=== PATIENT | male | born 2000 | race Caucasian/White ===

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

== ENCOUNTER → 2022-07-28 15:40 | Outpatient (CLI) | payer OTHER, SELFPAY ==
[2022-07-28 18:54] LABS: Basophils % 0.6 % (0.1-2.0); Eosinophils # 0.7 K/mm3 (0.0-0.4); Eosinophils % 14.1 % (0.1-12.0); Hematocrit 46.2 % (42.0-52.0); Hemoglobin 14.8 g/dL (14.1-18.0); Mean Corpuscular HGB Conc 32.1 g/dL (31.8-35.4); Mean Corpuscular Hemoglobin 27.9 pg (27.0-31.2); Mean Corpuscular Volume 86.9 fl (80-94); Mean Platelet Volume 6.7 fl (7.4-10.4); Monocytes # 0.3 K/mm3 (0.1-1.0); Monocytes % 6.3 % (1.7-9.3); Neutrophils # 2.1 K/mm3 (1.8-7.8); Platelet Count 220 K/mm3 (142-424); Red Blood Count 5.31 M/mm3 (4.60-6.20); Red Cell Distribution Width 13.3 % (11.5-17.5); White Blood Count 5.2 K/mm3 (4.5-13.0)
[2022-07-28 18:59] LABS: Alanine Aminotransferase 21 U/L (12-78); Albumin Level 4.8 g/dl (3.5-5.0); Albumin/Globulin Ratio 1.9 (1.1-1.8); Alkaline Phosphatase 81 U/L (38-126); Anion Gap 16.6 mEq/L (5-15); Aspartate Amino Transferase 30 U/L (17-59); Bilirubin,Total 0.4 mg/dl (0.2-1.3); Blood Urea Nitrogen 11 mg/dl (9-20); Calcium 9.6 mg/dl (8.4-10.2); Carbon Dioxide 26 mmol/L (22.0-30.0); Chloride 103 mmol/L (98-107); Chol/HDL Ratio 3.9 (1-3.5); Cholesterol 205 mg/dl (140-200); Estimated Glomerular Filt Rate 172 ml/min (>60); GFR (African American) 208 ML/MIN (>60); Globulin 2.5 g/dL (1.3-3.2); Glucose 84 mg/dl (74-100); HDL Cholesterol 52 mg/dl (40-60); Potassium 4.6 mmoL/L (3.5-5.1); Sodium 141 mmol/L (136-145); Total Protein,Serum 7.3 g/dl (6.3-8.2); Triglycerides 170 mg/dl (30-150); VLDL Cholesterol 34 mg/dL (0-40)
[2022-07-28 19:10] LABS: Direct LDL Cholesterol 118.87 mg/dL (100-129)
[2022-07-28 19:16] LABS: 25-OH Vitamin D, Total 28.1 ng/mL (30-100)
[2022-07-28 19:29] LABS: Thyroid Stimulating Hormone 2.38 uIU/mL (0.465-4.68)
== END ==
PROVIDERS: PCP Physician Assistant; Visit Provider Physician Assistant
DX: R53.83 Other fatigue (principal); E55.9 Vitamin D deficiency, unspecified; Z79.899 Other long term (current) drug therapy
CPT/HCPCS: 80053; 80061; 82306; 84443; 85025

== ENCOUNTER 2022-10-29 14:55 | Emergency (ER) | payer OTHER, SELFPAY ==
[2022-10-29 14:56] VITALS: BP 165/81; PULSE 132; RESP 18; TEMP 36.8; O2SAT 99; BMI 21.2
--- NOTE | 2022-10-29 15:07 | XR_ITS ---
FINAL REPORT CLINICAL HISTORY: laceration top of rt foot, glass FB? COMPARISON: None FINDINGS: RIGHT FOOT: Three views of the right foot were obtained. There is no acute fracture or dislocation. The joint spaces are intact. There is a soft tissue laceration overlying the dorsal surface of the foot. No radiopaque foreign body is identified. IMPRESSION: No acute bony abnormality. Soft tissue laceration, dorsal surface of the right foot. No radiopaque foreign body is identified. Reviewed, Interpreted and Dictated by Lam Charlton III, MD Transcribed by Alycia Engle Authenticated and [facility]
--- NOTE | 2022-10-29 15:09 | HMH.EDGENADL ---
Discharge Plan Disposition Patient Disposition: Home, Self-Care Prescriptions Prescriptions: No Action venlafaxine [Effexor XR] 37.5 mg capsule,extended release 24hr 37.5 mg PO DAILY Qty: 30 0RF cholecalciferol (vitamin D3) 50 mcg (2,000 unit) capsule 50 mcg PO DAILY Qty: 90 3RF ergocalciferol (vitamin D2) 1,250 mcg (50,000 unit) capsule 1,250 mcg PO WEEKLY Qty: 14 3RF Referrals Follow up/Referrals: Nicanor Plascencia MD [Primary Care Provider] - See instructions Activity Restrictions/Add. Instructions Additional Instructions/Restrictions: Have your sutures removed in 7 to 10 days return with any worsening redness or pus coming from your wound or other concerns. Clinical Impressions Clinical Impression: Laceration of foot Instructions Patient Instructions: DI for Laceration Repair Discharge ED Provider: Lucía Abdi General Adult HPI General Chief complaint: Wound/Laceration Stated complaint: AO9/6@home, lac on Rt foot Time Seen by Provider: 10/29/22 15:04 Mode of Arrival: Ambulatory Source of Information: Patient Limitations: No Limitations Description of Symptoms (Recalled from ER Triage Doc. by RN): Patient reports dropping a glass table on the top of his right foot causing a laceration. History of Present Illness HPI narrative: Patient is a 21-year-old male here with a laceration to the dorsal aspect of his right foot. States he was moving a glass table and part of it broke and lacerated the top portion of his foot. Unsure as to whether or not there is a retained foreign body. His last tetanus shot was in middle school. No other injuries elsewhere. Related Data Previous Rx's Medication Instructions Recorded cholecalciferol (vitamin D3) 50 50 mcg PO DAILY #90 caps 07/29/22 mcg (2,000 unit) capsule ergocalciferol (vitamin D2) 1,250 1,250 mcg PO WEEKLY #14 caps 07/29/22 mcg (50,000 unit) capsule venlafaxine 37.5 mg 37.5 mg PO DAILY #30 caps 07/29/22 capsule,extended release 24 hr (Effexor XR) Allergies Allergy/AdvReac Type Severity Reaction Status Date / Time No Known Allergies Allergy Verified 07/28/22 14:12 [facility] Disclaimer: The information contained in this section may have been updated after the patient was seen, as this information can be updated by other users. Social History (Updated 07/28/22 @ 14:12 by ROBBIE Luis) Smoking Status: Current every day smoker tobacco type: cigarettes second hand exposure: No alcohol intake: never substance use type: denies use current occupational status: student Travel in the last 8 weeks: None household members: family housing: house ROS Obtained: Yes All systems reviewed & no additional complaints except as documented Physical Exam General General appearance: alert Respiratory Respiratory exam: Present normal lung sounds bilaterally; Absent respiratory distress Cardiovascular Cardiovascular exam: Present regular rate; Absent tachycardia Extremities Exam Extremities exam: Present other (3 cm laceration on dorsal aspect of the right foot gaping about 1 to 2 cm) Neurological Exam Neurological exam: Present alert and oriented X3 Medical Decision Making Bradley Inquiry Pt receiving controlled substance: No Vital Signs: 10/29/22 14:56 Temperature 98.3 F Temperature Source Oral Pulse Rate [Radial] 132 H Respiratory Rate 18 Blood Pressure [Right Arm] 165/81 H Blood Pressure Mean [Right Arm] 109 Blood Pressure Source [Right Arm] Automatic Cuff Blood Pressure Position [Right Arm] Sitting 02 Sat by Pulse Oximetry 99 Oxygen Delivery Method Room Air Orders (Tests/Meds): ED MEDICATIONS Discontinued Medications Generic Name Dose Route Start Last Admin Trade Name Freq PRN Reason Stop Dose Admin Tetanus/Reduced Diphtheria/Acell Pertussis 0.5 ml 10/29/22 15:07 10/29/22 15:16 Tet/Diphth/Pert-Adult 0.5ml Syringe IM 10/29/22 15:08 0.5 ml .ONCE ONE Administrati
--- NOTE | 2022-10-29 15:24 | PC.NURSE ---
portable xray at
[2022-10-29 15:30] VITALS: BP 149/84; PULSE 114; O2SAT 100
[2022-10-29 16:00] VITALS: BP 149/84; PULSE 95; RESP 18; TEMP 36.7; O2SAT 99
== END 2022-10-29 16:01 | disposition home or self-care (01) ==
LOC: ER 15:18
PROVIDERS: Emergency Provider Emergency Medicine; PCP Internal Medicine Adolescent Medicine
DX: S91.311A Laceration without foreign body, right foot, initial encounter (principal); F17.210 Nicotine dependence, cigarettes, uncomplicated; W25.XXXA Contact with sharp glass, initial encounter; Z23 Encounter for immunization
CPT/HCPCS: 12002; 73630; 90715; 96372; 99283

== ENCOUNTER 2022-11-04 15:08 | Emergency (ER) | payer OTHER, SELFPAY ==
[2022-11-04 15:25] VITALS: BP 148/79; PULSE 87; RESP 19; TEMP 37.1; O2SAT 98
--- NOTE | 2022-11-04 15:48 | EXP.UTC ---
Discharge Plan Disposition Patient Disposition: Home, Self-Care Condition: Good Prescriptions Prescriptions: New clindamycin HCl 300 mg capsule 300 mg PO Q6H 7 Days Qty: 28 0RF No Action venlafaxine [Effexor XR] 37.5 mg capsule,extended release 24hr 37.5 mg PO DAILY Qty: 30 0RF cholecalciferol (vitamin D3) 50 mcg (2,000 unit) capsule 50 mcg PO DAILY Qty: 90 3RF ergocalciferol (vitamin D2) 1,250 mcg (50,000 unit) capsule 1,250 mcg PO WEEKLY Qty: 14 3RF Referrals Follow up/Referrals: Nicanor Plascencia MD [Primary Care Provider] - See instructions Activity Restrictions/Add. Instructions Additional Instructions/Restrictions: Keep wound area clean and dry clean with antibacterial soap and water and pat dry Take oral antibiotic as prescribe eating yogurt while taking this medication may help with stomach upset Follow up with your Family Doctor if no improvement Straight to ER if any life threatening symptoms Clinical Impressions Clinical Impression: Wound infection Instructions Patient Instructions: Clindamycin Discharge ED Provider: Mariah Gonzales [facility] General Stated complaint: RT foot wound poss infected Mode of Arrival: Ambulatory Source of Information: Patient Limitations: No Limitations Time Seen by Provider: 11/04/22 15:48 Description of Symptoms (Recalled from Triage Doc. by RN): PATIENT C/O POSSIBLE INFECTION TO LACERATION THAT WAS SEWN ON THURSDAY HEENT Symptoms (Recalled from RN notes): No Resp Symptoms (Recalled from RN notes): No Skin Symptoms (Recalled from RN notes): Yes MS Symptoms (Recalled from RN notes): No Functional Status (Recalled from RN notes): WNL History of Present Illness Provider Complaint: Patient states that he cut his foot last Thu and had to have the laceration sutured States that he noticed a couple days later it was looking red and starting to look infected States that today it was looking worse and looks like 2 of the sutures may be trying to come out so he came in to see if he may need some antibiotics Related Data Previous Rx's Medication Instructions Recorded cholecalciferol (vitamin D3) 50 50 mcg PO DAILY #90 caps 07/29/22 mcg (2,000 unit) capsule ergocalciferol (vitamin D2) 1,250 1,250 mcg PO WEEKLY #14 caps 07/29/22 mcg (50,000 unit) capsule venlafaxine 37.5 mg 37.5 mg PO DAILY #30 caps 07/29/22 capsule,extended release 24 hr (Effexor XR) clindamycin HCl 300 mg capsule 300 mg PO Q6H 7 days #28 caps 11/04/22 Allergies Allergy/AdvReac Type Severity Reaction Status Date / Time No Known Allergies Allergy Verified 07/28/22 14:12 Worker's Comp Is this a Worker's Comp case?: No PFSH PFS Disclaimer: The information contained in this section may have been updated after the patient was seen, as this information can be updated by other users. Social History (Updated 07/28/22 @ 14:12 by ROBBIE Luis) Smoking Status: Current every day smoker tobacco type: cigarettes second hand exposure: No alcohol intake: never substance use type: denies use current occupational status: student Travel in the last 8 weeks: None household members: family housing: house ROS Obtained: Yes All systems reviewed & no additional complaints except as documented and Yes Systems reviewed as appropriate & no additional complaints except as documented ENT Ears, Nose, Mouth, and Throat: Reports system reviewed and no additional complaints, except as documented and Reports as per HPI Cardiovascular Cardiovascular: Reports system reviewed and no additional complaints, except as documented and Reports as per HPI Respiratory Respiratory: Reports system reviewed and no additional complaints, except as documented and Reports as per HPI Gastrointestinal Gastrointestingal: Reports system reviewed and no additional complaints, except as documented and as per HPI Integumentary/Breasts Skin/Breast: Reports system reviewed and no additional comp
[2022-11-04 15:56] VITALS: BP 148/79; PULSE 87; RESP 19; TEMP 37.1; O2SAT 98
== END 2022-11-04 16:00 | disposition home or self-care (01) ==
PROVIDERS: Emergency Provider Nurse Practitioner; PCP Internal Medicine Adolescent Medicine
DX: L08.9 Local infection of the skin and subcutaneous tissue, unspecified (principal); F17.210 Nicotine dependence, cigarettes, uncomplicated
CPT/HCPCS: 99212; 99214; G0463

== ENCOUNTER 2022-11-13 17:48 | Emergency (ER) | payer OTHER, SELFPAY ==
[2022-11-13 17:55] VITALS: BP 143/80; PULSE 70; RESP 20; TEMP 37.3; O2SAT 99; BMI 23.8
--- NOTE | 2022-11-13 18:25 | EXP.UTC ---
Discharge Plan Disposition Patient Disposition: Home, Self-Care Condition: Good Prescriptions Prescriptions: No Action venlafaxine [Effexor XR] 37.5 mg capsule,extended release 24hr 37.5 mg PO DAILY Qty: 30 0RF cholecalciferol (vitamin D3) 50 mcg (2,000 unit) capsule 50 mcg PO DAILY Qty: 90 3RF ergocalciferol (vitamin D2) 1,250 mcg (50,000 unit) capsule 1,250 mcg PO WEEKLY Qty: 14 3RF clindamycin HCl 300 mg capsule 300 mg PO Q6H 7 Days Qty: 28 0RF Referrals Follow up/Referrals: Nicanor Plascencia MD [Primary Care Provider] - See instructions Haley Childress APRN [Nurse Practitioner] - See instructions Activity Restrictions/Add. Instructions Additional Instructions/Restrictions: Finish antibiotics as prescribed Stay off foot and rest the area to allow time to heal Follow up with Podiatry if wound continues to bother you or hurt or opens more Return if needed Straight to ER if any life threatening symptoms Clinical Impressions Clinical Impression: Visit for wound check Discharge ED Provider: Mariah Gonzales [facility] General Stated complaint: stitchea have come loose RT foot Mode of Arrival: Ambulatory Source of Information: Patient Limitations: No Limitations Time Seen by Provider: 11/13/22 18:25 Description of Symptoms (Recalled from Triage Doc. by RN): PATIENT C/O LACERATION TO RIGHT FOOT THAT WAS SUTURED ON 10/29. HE WAS TREATED FOR AN INFECTION TO THE LACERATION ON 11/04 AND HIS SUTURES HAS SINCE CAME OUT AND LACERATION CAME BACK OPEN. PATIENT IS CONCERNED BECAUSE LACERATION IS NOT CLOSED HEENT Symptoms (Recalled from RN notes): No Resp Symptoms (Recalled from RN notes): No Skin Symptoms (Recalled from RN notes): Yes MS Symptoms (Recalled from RN notes): No Functional Status (Recalled from RN notes): WNL History of Present Illness Provider Complaint: Patient states that he had laceration closed on 10/29 but continued to walk on it and then came back in about a week later because it looked infected and was red and swollen and was started on antibiotics States that the redness and swelling is gone but the wound is still open in the middle and was worried wanting to get it checked Related Data Previous Rx's Medication Instructions Recorded cholecalciferol (vitamin D3) 50 50 mcg PO DAILY #90 caps 07/29/22 mcg (2,000 unit) capsule ergocalciferol (vitamin D2) 1,250 1,250 mcg PO WEEKLY #14 caps 07/29/22 mcg (50,000 unit) capsule venlafaxine 37.5 mg 37.5 mg PO DAILY #30 caps 07/29/22 capsule,extended release 24 hr (Effexor XR) clindamycin HCl 300 mg capsule 300 mg PO Q6H 7 days #28 caps 11/04/22 Allergies Allergy/AdvReac Type Severity Reaction Status Date / Time No Known Allergies Allergy Verified 07/28/22 14:12 Worker's Comp Is this a Worker's Comp case?: No [facility] Disclaimer: The information contained in this section may have been updated after the patient was seen, as this information can be updated by other users. Social History (Updated 07/28/22 @ 14:12 by ROBBIE Luis) Smoking Status: Current every day smoker tobacco type: cigarettes second hand exposure: No alcohol intake: never substance use type: denies use current occupational status: student Travel in the last 8 weeks: None household members: family housing: house ROS Obtained: Yes All systems reviewed & no additional complaints except as documented and Yes Systems reviewed as appropriate & no additional complaints except as documented Constitutional Constitutional: Reports system reviewed and no additional complaints, except as documented and Reports as per HPI ENT Ears, Nose, Mouth, and Throat: Reports system reviewed and no additional complaints, except as documented and Reports as per HPI Cardiovascular Cardiovascular: Reports system reviewed and no additional complaints, except as documented and Reports as per HPI Gastrointestinal Gastrointestingal: Reports system reviewed and no
[2022-11-13 18:44] VITALS: BP 143/80; PULSE 70; RESP 20; TEMP 37.3; O2SAT 99
== END 2022-11-13 18:43 | disposition home or self-care (01) ==
PROVIDERS: Emergency Provider Nurse Practitioner; PCP Internal Medicine Adolescent Medicine
DX: S91.311A Laceration without foreign body, right foot, initial encounter (principal); Z48.01 Encounter for change or removal of surgical wound dressing; F17.210 Nicotine dependence, cigarettes, uncomplicated
CPT/HCPCS: 99212; 99213; G0463

== ENCOUNTER 2023-06-27 12:50 | Emergency (ER) | payer OTHER, SELFPAY ==
--- NOTE | 2023-06-27 12:59 | ED_ITS ---
Discharge Plan Disposition Patient Disposition: Home, Self-Care Condition: Good Prescriptions Prescriptions: New ondansetron 4 mg Tablet,Disintegrating 4 mg PO Q8H PRN (Reason: Nausea) Qty: 12 0RF No Action venlafaxine [Effexor XR] 37.5 mg capsule,extended release 24hr 37.5 mg PO DAILY Qty: 30 0RF cholecalciferol (vitamin D3) 50 mcg (2,000 unit) capsule 50 mcg PO DAILY Qty: 90 3RF ergocalciferol (vitamin D2) 1,250 mcg (50,000 unit) capsule 1,250 mcg PO WEEKLY Qty: 14 3RF clindamycin HCl 300 mg capsule 300 mg PO Q6H 7 Days Qty: 28 0RF Referrals Follow up/Referrals: Provider,Referral, MD [Primary Care Provider] - See instructions Activity Restrictions/Add. Instructions Additional Instructions/Restrictions: Drink plenty of fluids. Take tylenol or ibuprofen for pain or fever. Take the medications as directed. Follow up with your regular doctor. GO TO THE ER FOR ANY WORSENING SYMPTOMS Clinical Impressions Clinical Impression: Gastroenteritis Instructions Patient Instructions: Viral Gastroenteritis, DI for Viral Gastroenteritis -- Adult, Ondansetron Discharge ED Provider: Peyman Uribe [facility] General Stated complaint: vomiting blood, stomach pain Time Seen by Provider: 06/27/23 12:59 History of Present Illness Provider Complaint: He states that for the past 2 days he has had n/v/d and abdominal pain. He states that he has not voided in 12 hours. He has also noted some pinkish color to his vomitus that he thinks is blood. Related Data Previous Rx's Medication Instructions Recorded cholecalciferol (vitamin D3) 50 50 mcg PO DAILY #90 caps 07/29/22 mcg (2,000 unit) capsule ergocalciferol (vitamin D2) 1,250 1,250 mcg PO WEEKLY #14 caps 07/29/22 mcg (50,000 unit) capsule venlafaxine 37.5 mg 37.5 mg PO DAILY #30 caps 07/29/22 capsule,extended release 24 hr (Effexor XR) clindamycin HCl 300 mg capsule 300 mg PO Q6H 7 days #28 caps 11/04/22 ondansetron 4 mg disintegrating 4 mg PO Q8H PRN Nausea #12 tabs 06/27/23 tablet Allergies Allergy/AdvReac Type Severity Reaction Status Date / Time No Known Allergies Allergy Verified 07/28/22 14:12 [facility] Disclaimer: The information contained in this section may have been updated after the patient was seen, as this information can be updated by other users. Medical History (Updated 06/27/23 @ 14:49 by Peyman Uribe APRN) Anxiety Surgical History (Updated 06/27/23 @ 13:06 by Alexia Moulton RN) History of tympanostomy tube placement Social History (Updated 07/28/22 @ 14:12 by ROBBIE Luis) Smoking Status: Current every day smoker tobacco type: cigarettes second hand exposure: No alcohol intake: never substance use type: denies use current occupational status: student Travel in the last 8 weeks: None household members: family housing: house ROS Obtained: Yes All systems reviewed & no additional complaints except as documented Constitutional Constitutional: Denies chills, Denies fever(s) and Reports poor appetite ENT Ears, Nose, Mouth, and Throat: Denies dizziness and Denies sore throat Cardiovascular Cardiovascular: Denies dyspnea Respiratory Respiratory: Denies chest congestion, Denies cough and Denies dyspnea Gastrointestinal Gastrointestingal: Reports as per HPI, cramping, diarrhea, nausea and vomiting; Denies hematochezia or melena Musculoskeletal Musculoskeletal: Denies arthralgias Integumentary/Breasts Skin/Breast: Denies rash Neurologic Neurologic: Denies dizziness Physical Exam General General appearance: alert and in no apparent distress Head Head exam: atraumatic and normocephalic Eye Eye exam: Present normal appearance, PERRL and EOMI ENT ENT exam: Present normal exam, normal oropharynx, mucous membranes moist, TM's normal bilaterally and normal external ear exam Neck Neck exam: Present normal inspection, full ROM and trachea midline; Absent tenderness, meningismus or lymphadenopathy Chest Chest inspection: Present normal inspection and symmetric chest wall rise; Absent tenderness, rash or abscess Respiratory Respiratory exam: Present normal lung sounds bilaterally; Absent respiratory distress, wheezes or stridor Cardiovascular Cardiovascular exam: Present regular rate and normal rhythm; Absent irregular rhythm, systolic murmur, diastolic murmur or JVD Abdominal Exam Abdominal exam: Present soft and hyperactive bowel sounds; Absent distention, tenderness, guarding, rebound, rigidity, psoas sign, obturator sign, heel tap sign, Alcazar's sign, Rovsing's sign or tenderness at McBurney's Point Extremities Exam Extremities exam: Present normal inspection and full ROM; Absent tenderness Back Exam Back exam: Present normal inspection and full ROM; Absent tenderness, CVA tenderness (R) or CVA tenderness (L) Neurological Exam Neurological exam: Present alert, oriented X3 and CN II-XII intact Psychiatric Psychiatric exam: Present normal affect and normal mood Skin Skin exam: Present warm, dry, intact and normal color Lymphatic Lymphatic Findings: no adenopathy Medical Decision Making Medical Records Medical records reviewed: No I reviewed the patient's medical records. Bradley Inquiry Pt receiving controlled substance: No Lab Data Lab results reviewed: Yes I reviewed the patient's lab results. 06/27/23 13:20 06/27/23 13:20
[2023-06-27 13:00] VITALS: BP 138/91; PULSE 56; RESP 16; TEMP 36.6; O2SAT 98; BMI 19.5
[2023-06-27] MEDS: 0.9 % SODIUM CHLORIDE 1000ML 1,000 ML 999 ML IV (13:35)
[2023-06-27 13:55] LABS: Basophils # 0.1 K/mm3 (0-0.2); Basophils % 0.8 % (0.1-2.0); Eosinophils # 0.1 K/mm3 (0.0-0.4); Eosinophils % 1.5 % (0.1-12.0); Hematocrit 51.5 % (42.0-52.0); Hemoglobin 17.4 g/dL (14.1-18.0); Lymphocytes # 1.4 K/mm3 (0.7-4.5); Lymphocytes % 17.3 % (10-50); Mean Corpuscular HGB Conc 33.8 g/dL (31.8-35.4); Mean Corpuscular Hemoglobin 29.5 pg (27.0-31.2); Mean Corpuscular Volume 87.3 fl (80-94); Mean Platelet Volume 8.1 fl (7.4-10.4); Monocytes # 0.6 K/mm3 (0.1-1.0); Monocytes % 7.1 % (1.7-9.3); Neutrophils # 5.7 K/mm3 (1.8-7.8); Neutrophils % 73.2 % (37.0-80.0); Platelet Count 292 K/mm3 (142-424); Red Cell Distribution Width 13.8 % (11.5-17.5); White Blood Count 7.8 K/mm3 (4.8-10.8)
[2023-06-27 13:56] LABS: Chloride 103 mmol/L (98-107); Potassium 4.5 mmoL/L (3.5-5.1); Sodium 140 mmol/L (136-145)
[2023-06-27 13:58] LABS: Amylase 65 U/L (30-110)
[2023-06-27 13:59] LABS: Alanine Aminotransferase 23 U/L (12-78); Albumin Level 5.2 g/dl (3.5-5.0); Albumin/Globulin Ratio 1.3 (1.1-1.8); Alkaline Phosphatase 80 U/L (38-126); Anion Gap 17.5 mEq/L (5-15); Aspartate Amino Transferase 46 U/L (17-59); Bilirubin,Total 1.1 mg/dl (0.2-1.3); Blood Urea Nitrogen 21 mg/dl (9-20); Calcium 10.2 mg/dl (8.4-10.2); Carbon Dioxide 24 mmol/L (22.0-30.0); Creatinine Clearance Estimated 146 mL/min (50-200); Estimated Glomerular Filt Rate 122 ml/min (>60); GFR (African American) 148 ML/MIN (>60); Globulin 4.1 g/dL (1.3-3.2); Glucose 99 mg/dl (74-100); Lipase 42 U/L (23-300); Total Protein,Serum 9.3 g/dl (6.3-8.2)
[2023-06-27] MEDS: ONDANSETRON 4MG/2ML VIAL 4 MG IV (14:36)
[2023-06-27 14:55] VITALS: BP 138/91; PULSE 56; RESP 16; TEMP 36.6; O2SAT 98
== END 2023-06-27 15:12 | disposition home or self-care (01) ==
PROVIDERS: Emergency Provider Nurse Practitioner Family
DX: A08.4 Viral intestinal infection, unspecified (principal); R11.2 Nausea with vomiting, unspecified
CPT/HCPCS: 80053; 82150; 83690; 85025; 96361; 96374; 99212; 99214; G0463; J2405

== ENCOUNTER 2023-12-30 13:46 | Emergency (ER) | payer OTHER, SELFPAY ==
--- NOTE | 2023-12-30 14:19 | ED_ITS ---
Discharge Plan Disposition Patient Disposition: Home, Self-Care Condition: Good Prescriptions Prescriptions: New ondansetron 4 mg Tablet,Disintegrating 4 mg PO Q8H PRN (Reason: Nausea) Qty: 12 0RF Referrals Follow up/Referrals: Provider,Referral, MD [Primary Care Provider] - See instructions Activity Restrictions/Add. Instructions Additional Instructions/Restrictions: Drink plenty of fluids. Take tylenol or ibuprofen for pain or fever. Take the medications as directed. Follow up with your regular doctor. GO TO THE ER FOR ANY WORSENING SYMPTOMS Clinical Impressions Clinical Impression: Gastroenteritis Stand Alone Forms Stand Alone Forms: Work/School Release Instructions Patient Instructions: Viral Gastroenteritis, DI for Viral Gastroenteritis -- Adult, Ondansetron Print Language Print Language: Amharic Discharge ED Provider[place] Peyman U[place] [facility] [place] General Stated complaint: vomiting, stomach pain, diarrhea, weak Time Seen by Provider: 12/30/23 14:19 Related Data Previous Rx's ?Medication ?Instructions ?Recorded ondansetron 4 mg disintegrating 4 mg PO Q8H PRN Nausea #12 tabs 12/30/23 tablet Allergies Allergy/AdvReac Type Severity Reaction Status Date / Time No Known Allergies Allergy Verified 07/28/22 14:12 [facility] Disclaimer: The information contained in this section may have been updated after the patient was seen, as this information can be updated by other users. Medical History (Updated 12/30/23 @ 15:10 by Peyman Uribe APRN) Anxiety Surgical History (Updated 06/27/23 @ 13:06 by Alexia Moulton RN) History of tympanostomy tube placement Social History (Updated 07/28/22 @ 14:12 by ROBBIE Luis) Smoking Status: Current every day smoker tobacco type: cigarettes second hand exposure: No alcohol intake: never substance use type: denies use current occupational status: student Travel in the last 8 weeks: None household members: family housing: house ROS Obtained: Yes All systems reviewed & no additional complaints except as documented Constitutional Constitutional: Denies chills, Denies fever(s) and Reports poor appetite ENT Ears, Nose, Mouth, and Throat: Denies dizziness and Denies sore throat Cardiovascular Cardiovascular: Denies dyspnea Respiratory Respiratory: Denies chest congestion, Denies cough and Denies dyspnea Gastrointestinal Gastrointestingal: Reports as per HPI; Denies abdominal pain Musculoskeletal Musculoskeletal: Denies arthralgias Integumentary/Breasts Skin/Breast: Denies rash Neurologic Neurologic: Denies dizziness Physical Exam General General appearance: alert and in no apparent distress Head Head exam: atraumatic and normocephalic Eye Eye exam: Present normal appearance, PERRL and EOMI ENT ENT exam: Present normal exam, normal oropharynx, mucous membranes moist, TM's normal bilaterally and normal external ear exam Neck Neck exam: Present normal inspection, full ROM and trachea midline; Absent tenderness, meningismus or lymphadenopathy Chest Chest inspection: Present normal inspection and symmetric chest wall rise; Absent tenderness, rash or abscess Respiratory Respiratory exam: Present normal lung sounds bilaterally; Absent respiratory distress, wheezes or stridor Cardiovascular Cardiovascular exam: Present regular rate and normal rhythm; Absent irregular rhythm, systolic murmur, diastolic murmur or JVD Abdominal Exam Abdominal exam: Present soft and hyperactive bowel sounds; Absent distention, tenderness, guarding, rebound, rigidity, psoas sign, obturator sign, heel tap sign, Alcazar's sign, Rovsing's sign or tenderness at McBurney's Point Extremities Exam Extremities exam: Present normal inspection and full ROM; Absent tenderness Back Exam Back exam: Present normal inspection and full ROM; Absent tenderness, CVA tenderness (R) or CVA tenderness (L) Neurological Exam Neurological exam: Present alert, oriented X3 and CN II-XII intact Psychiatric Psychiatric exam: Present normal affect and normal mood Skin Skin exam: Present warm, dry, intact and normal color Lymphatic Lymphatic Findings: no adenopathy Medical Decision Making Medical Records Medical records reviewed: No I reviewed the patient's medical records. Screening: Per USPSTF and CDC recommendations, given the prevalence of disease in our region, it is our hospital?s policy to screen for HIV and viral Hepatitis for all patients aged 18 and over and those with ongoing risk factors. Bradley Inquiry Pt receiving controlled substance: No
[2023-12-30 14:21] VITALS: BP 117/66; PULSE 73; RESP 18; TEMP 37; O2SAT 100; BMI 20.2
[2023-12-30 15:11] VITALS: BP 117/66; PULSE 73; RESP 18; TEMP 37
== END 2023-12-30 15:14 | disposition home or self-care (01) ==
PROVIDERS: Emergency Provider Nurse Practitioner Family
DX: K52.9 Noninfective gastroenteritis and colitis, unspecified (principal)
CPT/HCPCS: 99213; G0381

== ENCOUNTER 2024-01-12 18:52 | Emergency (ER) | payer OTHER, SELFPAY ==
[2024-01-12 19:50] VITALS: BP 110/83; PULSE 73; RESP 19; TEMP 36.8; O2SAT 99; BMI 20.9
[2024-01-12 19:58] LABS: UTC Strep Screen (Rapid) Negative (Negative)
--- NOTE | 2024-01-12 20:18 | EXP.UTC ---
Discharge Plan Disposition Patient Disposition: Home, Self-Care Condition: Good Prescriptions Prescriptions: New amoxicillin 500 mg capsule 500 mg PO TID 7 Days Qty: 21 0RF fluticasone propionate [Flonase Allergy Relief] 50 mcg/actuation spray,suspension 2 spray intranasal DAILY Qty: 16 0RF Rx Instructions: administer into each nostril daily Referrals Follow up/Referrals: Provider,Referral, MD [Primary Care Provider] - See instructions Activity Restrictions/Add. Instructions Additional Instructions/Restrictions: *Monitor Temp, Over the counter Motrin or Tylenol as directed/as needed Tylenol every 4 hours and Motrin every 6 hours (as long as your family doctor has told you that you can take it) for fever or pain. and straight to ER if unable to lower temp less than 101.0 after medication given *Warm salt water gargles may help to soothe the throat *Throat Lozenges? *Warm fluids like tea with honey may help to soothe the throat? *Sleep elevated *Humidifier/Vaporizer *Flonase 2 sprays in each nostril daily but be aware that it may take 2-3 days before you notice improvement Your throat swab was sent for culture. Those results are typically sent to your primary care. Be sure to follow up in 2-3 days with your family doctor/primary care physician if no improvement so they can review those result and treat if necessary. If you don?t have a primary care doctor, I recommend you get one but in the mean time, you will have to return to a walk in clinic Follow up IMMEDIATELY for new or worsening symptoms or no Noticeable improvement over the next 48-72 hours. 911 for difficulty breathing or swallowing Clinical Impressions Clinical Impression: Otitis media Stand Alone Forms Stand Alone Forms: Work/School Release Instructions Patient Instructions: Middle Ear Infection, Sore Throat Print Language Print Language: Singaporean Discharge ED Provider[place] Mariah [place] [facility] [place] General Stated complaint: bilateral ear pain Mode of Arrival: Ambulatory Source of Information: Patient Limitations: No Limitations Time Seen by Provider: 01/12/24 20:18 Description of Symptoms (Recalled from Triage Doc. by RN): PATIENT C/O SORE THROAT AND EAR PAIN SINCE YESTERDAY HEENT Symptoms (Recalled from RN notes): Yes Resp Symptoms (Recalled from RN notes): No Skin Symptoms (Recalled from RN notes): No MS Symptoms (Recalled from RN notes): No Functional Status (Recalled from RN notes): WNL History of Present Illness Provider Complaint: Patient state that he has been having bilateral ear pain worse in the left for several weeks and sore throat the last couple of days so today when they was still bothering him he came in to get checked Related Data Previous Rx's ?Medication ?Instructions ?Recorded amoxicillin 500 mg capsule 500 mg PO TID 7 days #21 caps 01/12/24 fluticasone propionate 50 2 spray intranasal DAILY #16 grams 01/12/24 mcg/actuation nasal spray,suspension (Flonase Allergy Relief) Allergies Allergy/AdvReac Type Severity Reaction Status Date / Time No Known Allergies Allergy Verified 07/28/22 14:12 Worker's Comp Is this a Worker's Comp case?: No PFSH PFS Disclaimer: The information contained in this section may have been updated after the patient was seen, as this information can be updated by other users. Medical History (Updated 01/12/24 @ 20:29 by Mariah Gonzales APRN) Anxiety Surgical History (Updated 06/27/23 @ 13:06 by Alexia Moulton RN) History of tympanostomy tube placement Social History (Updated 07/28/22 @ 14:12 by ROBBIE Luis) Smoking Status: Current every day smoker tobacco type: cigarettes second hand exposure: No alcohol intake: never substance use type: denies use current occupational status: student Travel in the last 8 weeks: None household members: family housing: house ROS Obtained: Yes All systems reviewed & no additional complaints except as documented and Yes Systems reviewed as appropriate & no additional complaints except as documented Constitutional Constitutional: Reports system reviewed and no additional complaints, except as documented and Reports as per HPI ENT Ears, Nose, Mouth, and Throat: Reports system reviewed and no additional complaints, except as documented, Reports as per HPI, Reports otalgia and Reports sore throat Cardiovascular Cardiovascular: Reports system reviewed and no additional complaints, except as documented and Reports as per HPI Respiratory Respiratory: Reports system reviewed and no additional complaints, except as documented and Reports as per HPI Gastrointestinal Gastrointestingal: Reports system reviewed and no additional complaints, except as documented and as per HPI Genitourinary Male Genitourinary: Reports system reviewed and no additional complaints, except as documented and Reports as per HPI Musculoskeletal Musculoskeletal: Reports system reviewed and no additional complaints, except as documented and Reports as per HPI Physical Exam General General appearance: alert and in no apparent distress ENT ENT exam: Present mucous membranes moist Expanded ENT Exam Throat exam: Present tonsillar erythema; Absent tonsillomegaly or tonsillar exudate Respiratory Respiratory exam: Present normal lung sounds bilaterally; Absent respiratory distress or wheezes Cardiovascular Cardiovascular exam: Present regular rate, normal rhythm and normal heart sounds Neurological Exam Neurological exam: Present alert, oriented X3 and normal gait Medical Decision Making Medical Records Screening: Per USPSTF and CDC recommendations, given the prevalence of disease in our region, it is our hospital?s policy to screen for HIV and viral Hepatitis for all patients aged 18 and over and those with ongoing risk factors. Bradley Inquiry Pt receiving controlled substance: No Bradley was queried for this patient: No Vital Signs: 01/12/24 19:50 Temperature 98.3 F Temperature Source Oral Pulse Rate [Left Brachial] 73 Respiratory Rate 19 Blood Pressure [Left Arm] 110/83 Blood Pressure Mean [Left Arm] 92 Blood Pressure Source [Left Arm] Automatic Cuff Blood Pressure Position [Left Arm] Sitting 02 Sat by Pulse Oximetry 99 Oxygen Delivery Method Room Air Lab Data Lab results reviewed: Yes I reviewed the patient's lab results. Lab Results 01/12/24 19:49: Strep Scn Rapid Clinic Negative Orders (Tests/Meds): ORDERS Category Date Time Status Strep Screen Confirmation Stat Micro 01/12/24 19:49 Received Medical Decision Narrative: Patient denies any medication allergies
[2024-01-12 20:23] VITALS: BP 110/83; PULSE 73; RESP 19; TEMP 36.8; O2SAT 99
== END 2024-01-12 20:31 | disposition home or self-care (01) ==
PROVIDERS: Emergency Provider Nurse Practitioner
DX: H66.90 Otitis media, unspecified, unspecified ear (principal); R07.0 Pain in throat; H92.03 Otalgia, bilateral
CPT/HCPCS: 87880; 99212; G0381

== ENCOUNTER 2024-03-27 12:31 | Emergency (ER) | payer SELFPAY ==
[2024-03-27] VITALS (26 sets, daily range): BP systolic 106–182; BP diastolic 52–104; PULSE 67–175; RESP 14–28; TEMP 36.7; O2SAT 94–100; BMI 24.3
--- NOTE | 2024-03-27 12:27 | ECG_ITS ---
APPROVED REPORT Exam: Resting ECG HR:161 bpm ECG Measurements Heart Rate 161 AXES QRSd 101 QRS 80 QT 277 T 75 QTc 366 Conclusion Supraventricular tachycardia No acute ischemic change Electronically signed by : ERICK GRIFFIN, 03/28/2024 13:19:14
[2024-03-27] MEDS: ADENOSINE 6MG/2ML VIAL 6 MG IV (12:38)
[2024-03-27] MEDS: ADENOSINE 6MG/2ML VIAL 12 MG IV (12:40)
[2024-03-27] MEDS: dilTIAZem 25MG/5ML VIAL 20 MG IV (12:42)
[2024-03-27] MEDS: dilTIAZem 25MG/5ML VIAL 25 MG IV (12:57)
--- NOTE | 2024-03-27 13:09 | ECG_ITS ---
APPROVED REPORT Exam: Resting ECG HR:117 bpm ECG Measurements Heart Rate 117 AXES NC 196 P 63 QRSd 104 QRS 68 QT 307 T 51 QTc 377 Conclusion Sinus tachycardia Diffuse NC downsloping Electronically signed by : ERICK GRIFFIN, 03/28/2024 13:19:47
--- NOTE | 2024-03-27 13:57 | XR_ITS ---
PROCEDURE INFORMATION: Exam: XR Chest Exam date and time: 03/27/2024 2:05 PM Age: 23 years old Clinical indication: Pain; Chest pressure; Additional info: Tachycardia, SOA TECHNIQUE: Imaging protocol: Radiologic exam of the chest. Views: 1 view. Total images: 1 COMPARISON: No relevant prior studies available. FINDINGS: Lungs: No focal pneumonia. Granulomatous calcifications present within both lungs. Pleural spaces: No pleural effusions. No evidence of pneumothorax. Heart/Mediastinum: The heart is not enlarged. Bones/joints: Unremarkable. IMPRESSION: No focal pneumonia.
--- NOTE | 2024-03-27 13:57 | ED_ITS ---
Discharge Plan Disposition Patient Disposition: Home, Self-Care Prescriptions Prescriptions: No Action No Known Home Medications Referrals Follow up/Referrals: Dimitrios Lozano MD [Staff Physician] - See instructions Provider,MD Javi [Primary Care Provider] - See instructions Activity Restrictions/Add. Instructions Additional Instructions/Restrictions: Call your family doctor to establish care for this visit to the emergency department and schedule follow-up within 48 hours to ensure improvement. If you have any worsening of your condition or any other concerning signs or symptoms, return to the emergency department or your primary care doctor for further evaluation. Call Dr. Lozano's office tomorrow, 03/28 around 830 or 9 AM to set up an appointment, tell them that you are seen in the emergency department with SVT and would like a walk-in appointment for close follow-up. They will probably see you in the afternoon. Clinical Impressions Clinical Impression: Sustained SVT Print Language Print Language: Syriac Discharge ED Provider: Yann Crowe HPI General Chief Complaint: Chest Pain Stated Complaint: chest pain Time Seen by Provider: 03/27/24 12:34 Mode of Arrival: Ambulatory Source of Information: Patient Limitations: No Limitations Description of Symptoms (Recalled from ER Triage Doc. by RN): pt states his has been having r sided chest pain. his heart feels fast and he gets anxious. has been going on since . History of Present Illness HPI narrative: Please note that above description of symptoms, in this electronic medical record under categorization of recalled from ER triage doctor by RN are reflective of an initial nursing assessment, however, is not reflective of my full history and physical exam that was personally taken and clarified. Consequentially, this preceding description of symptoms, which may include the patient's categorized chief complaint in the EMR, do not reflect my personal clinical impression, and the ultimate description of history of present illness and patient stated complaints should be deferred to this section of the note. Unless stated otherwise or congruent with this section of the note, additional signs, symptoms, or incongruence should be interpreted as inaccurate with my clinical impression. Related Data Home Medications ?Medication ?Instructions ?Recorded ?Confirmed No Known Home Medications 03/27/24 03/27/24 Allergies Allergy/AdvReac Type Severity Reaction Status Date / Time No Known Allergies Allergy Verified 03/27/24 12:46 [facility] Disclaimer: The information contained in this section may have been updated after the patient was seen, as this information can be updated by other users. Medical History (Updated 03/27/24 @ 15:25 by Yann Crowe MD) Anxiety Surgical History History of tympanostomy tube placement Social History (Updated 03/27/24 @ 12:47 by Claudia Danielle RN) Smoking Status: Current every day smoker tobacco type: cigarettes second hand exposure: No alcohol intake: never substance use type: denies use current occupational status: student Travel in the last 8 weeks: None household members: family housing: house Have you lived/traveled outside [place] in past 30 days?: No Contact w/someone who lives/traveled outside US past 30 days?: No Exposure to someone with infectious disease in past 14 days?: No Do you have a fever (greater than 100.4 F or 38 C)?: No Have you tested positive for COVID-19: No Exposed to someone with COVID-19 in past 14 days?: No Do you have a sore throat?: No Do you have a cough?: No Do you have any weakness?: No Do you have any diarrhea?: No Are you experiencing any unusual bleeding?: No Do you have any muscle aches/pain?: No Do you have any abdominal pain?: No Are you experiencing loss of taste or smell?: No Other Medical History Have you received the Pneumonia Vaccine: No ROS Obtained: Yes All systems reviewed & no additional complaints except as documented Physical Exam General General appearance: alert and anxious Neck Neck exam: Present trachea midline Chest Chest inspection: Present normal inspection and symmetric chest wall rise Respiratory Respiratory exam: Present normal lung sounds bilaterally; Absent respiratory distress, wheezes, stridor, accessory muscle use or prolonged expiratory phase Cardiovascular Cardiovascular exam: Present normal rhythm, tachycardia and other (Pulses equal and symmetric in upper and lower extremities) Extremities Exam Extremities exam: Absent edema Neurological Exam Neurological exam: Present alert, oriented X3 and CN II-XII intact Skin Skin exam: Present warm and dry; Absent cyanosis, diaphoresis or pallor HEART Score HEART Score HEART Score assessment performed?: Yes HEART Score: 1 Procedures Limited Ultrasound Indication:: Limited cardiac ultrasound Indication: Chest pressure, palpitations Identified cardiac views: -Cardiac parasternal long axis -Cardiac parasternal short axis -Cardiac apical four-chamber Findings: -Cardiac activity present -Gross wall motion normal -Pericardial effusion absent -Right heart strain absent Impression: -Normal ultrasound. Normal EPSS, systolic ejection fraction, wall motion, etc. No effusion. No heart strain Images were saved to permanent archive The study was technically adequate CPT: 08339 This study was performed by me, and I personally interpreted all images/videos. Based on my clinical judgement, these images were adequate and did not necessitate further imaging Critical Care Critical Care Time Critical Care Time: Yes (cardiac) Attestation: On 03/27/24, the high probability of a clinically significant, sudden or life threatening deterioration of the following system(s) required my full and direct attention, intervention and personal management. The time I documented below is in addition to time spent performing reported procedures but includes the following listed in this critical care notation. Total Time Total Critical Care Time: 60 Medical Decision Making Medical Records Medical records reviewed: Yes I reviewed the patient's medical records. Bradley Inquiry Pt receiving controlled substance: No Bradley was queried for this patient: No Vital Signs Vital Signs: 03/27/24 12:32 03/27/24 12:33 03/27/24 12:39 Temperature 98.1 F Temperature Source Oral Pulse Rate 159 H 147 H Pulse Rate [Right] 175 H Respiratory Rate 27 H 28 H 19 Blood Pressure 182/96 H 156/90 H Blood Pressure [Right Arm] 182/96 H Blood Pressure Mean [Right Arm] 124 02 Sat by Pulse Oximetry 94 L 100 100 Oxygen Delivery Method Room Air Room Air Room Air 03/27/24 12:45 03/27/24 12:55 03/27/24 13:00 Temperature Temperature Source Pulse Rate 133 H 123 H 142 H Pulse Rate [Right] Respiratory Rate 21 18 16 Blood Pressure 179/103 H 175/84 H 141/63 H Blood Pressure [Right Arm] Blood Pressure Mean [Right Arm] 02 Sat by Pulse Oximetry 100 100 100 Oxygen Delivery Method Room Air Room Air Room Air 03/27/24 13:06 03/27/24 13:11 03/27/24 13:15 Temperature Temperature Source Pulse Rate 115 H 106 H 106 H Pulse Rate [Right] Respiratory Rate 19 19 15 Blood Pressure 157/73 H 136/75 136/77 Blood Pressure [Right Arm] Blood Pressure Mean [Right Arm] 02 Sat by Pulse Oximetry 100 99 100 Oxygen Delivery Method Room Air Room Air 03/27/24 13:20 02/02/25 13:26 03/27/24 13:31 Temperature Temperature Source Pulse Rate 95 H 97 H 92 H Pulse Rate [Right] Respiratory Rate 20 19 18 Blood Pressure 129/77 144/73 H 132/72 Blood Pressure [Right Arm] Blood Pressure Mean [Right Arm] 02 Sat by Pulse Oximetry 99 98 97 Oxygen Delivery Method Room Air Room Air 03/27/24 13:36 03/27/24 13:40 03/27/24 13:45 Temperature Temperature Source Pulse Rate 90 93 H 90 Pulse Rate [Right] Respiratory Rate 20 19 18 Blood Pressure 123/104 H 137/69 131/70 Blood Pressure [Right Arm] Blood Pressure Mean [Right Arm] 02 Sat by Pulse Oximetry 97 97 97 Oxygen Delivery Method Room Air Room Air Room Air 03/27/24 13:50 03/27/24 14:00 03/27/24 14:10 Temperature Temperature Source Pulse Rate 98 H 88 97 H Pulse Rate [Right] Respiratory Rate 21 14 19 Blood Pressure 135/73 131/77 126/69 Blood Pressure [Right Arm] Blood Pressure Mean [Right Arm] 02 Sat by Pulse Oximetry 97 96 97 Oxygen Delivery Method Room Air Room Air 03/27/24 14:25 03/27/24 14:30 03/27/24 14:41 Temperature Temperature Source Pulse Rate 85 83 91 H Pulse Rate [Right] Respiratory Rate 19 20 18 Blood Pressure 122/65 125/76 112/55 L Blood Pressure [Right Arm] Blood Pressure Mean [Right Arm] 02 Sat by Pulse Oximetry 99 99 99 Oxygen Delivery Method Room Air Room Air 03/27/24 15:00 03/27/24 15:05 03/27/24 15:10 Temperature Temperature Source Pulse Rate 77 83 89 Pulse Rate [Right] Respiratory Rate 19 18 14 Blood Pressure 109/52 L 124/58 L 106/86 L Blood Pressure [Right Arm] Blood Pressure Mean [Right Arm] 02 Sat by Pulse Oximetry 98 98 98 Oxygen Delivery Method Room Air Room Air Room Air 03/27/24 15:16 03/27/24 15:30 Temperature 98.1 F Temperature Source Pulse Rate 67 77 Pulse Rate [Right] Respiratory Rate 18 Blood Pressure 126/70 107/60 L Blood Pressure [Right Arm] Blood Pressure Mean [Right Arm] 02 Sat by Pulse Oximetry 99 Oxygen Delivery Method Room Air Lab Data Labs: Lab Results 03/27/24 12:34: WBC 11.6 H, RBC 5.89, Hgb 17.0, Hct 49.2, MCV 83.5, MCH 28.9, MCHC 34.6, RDW 12.6, Plt Count 309, MPV 9.2, Neut % (Auto) 58.6, Lymph % (Auto) 28.7, [place] % (Auto) 9.0, Eos % (Auto) 3.1, Baso % (Auto) 0.3, Neut # (Auto) 6.8, Lymph # (Auto) 3.3, [place] # (Auto) 1.0, Eos # (Auto) 0.4, Baso # (Auto) 0.0, D- Dimer 0.36, Sodium 142, Potassium 3.3 L, Chloride 103, Carbon Dioxide 25, Anion Gap 17.3 H, BUN 10, Creatinine 0.70, Estimated Creat Clear 207, Estimated GFR 141, Est GFR ( Amer) 171, Glucose 63 L, Calcium 9.9, Total Bilirubin 0.5, AST 30, ALT 20, Alkaline Phosphatase 89, Troponin I < 0.01, Total Protein 8.0, A lbumin 5.2 H, Globulin 2.8, Albumin/Globulin Ratio 1.9 H, TSH 1.54, Thyroxine (T4) 7.3, HCV Ab RAMOS w/Rflx PCR Qn Negative, HIV Ag/Ab Combo Qual Negative 03/27/24 12:34 03/27/24 12:34 Response Orders (Tests/Meds): ED MEDICATIONS Discontinued Medications Generic Name Dose Route Start Last Admin Trade Name Damianq PRN Reason Stop Dose Admin Adenosine 6 mg 03/27/24 12:38 03/27/24 12:38 Adenosine 6mg/2ml Vial IV 03/27/24 12:39 6 mg ONCE ONE Administration Adenosine 12 mg 03/27/24 12:40 03/27/24 12:40 Adenosine 6mg/2ml Vial IV 03/27/24 12:41 12 mg ONCE ONE Administration Diltiazem HCl 20 mg 03/27/24 12:42 03/27/24 12:42 Diltiazem 25mg/5ml Vial IV 03/27/24 12:43 20 mg ONCE ONE Administration Diltiazem HCl 25 mg 03/27/24 12:57 03/27/24 12:57 Diltiazem 25mg/5ml Vial IV 03/27/24 12:58 25 mg ONCE ONE Administration ORDERS Category Date Time Status CXR --portable [XR chest portable] Stat Exams 03/27/24 13:57 Completed POCUS Point of Care (ER Only) Stat Exams 03/27/24 13:57 Completed CBC w/Auto Diff [Complete Blood Count Auto Diff] Stat Lab 03/27/24 12:34 Completed CMP [Comprehensive Metabolic Panel] Stat Lab 03/27/24 12:34 Completed D-Dimer Stat Lab 03/27/24 12:34 Completed HIV Combo Stat Lab 03/27/24 12:34 Completed Hepatitis C Ab Qual. W/ RFX Stat Lab 03/27/24 12:34 Completed T4 (Thyroxine) Stat Lab 03/27/24 12:34 Completed TSH [Thyroid Stimulating Hormone] Stat Lab 03/27/24 12:34 Completed Trop I [Troponin I] Stat Lab 03/27/24 12:34 Completed Troponin I Q3H Lab 03/27/24 17:00 Ordered Troponin I Q3H Lab 03/27/24 20:00 Ordered UDS [Drug Screen,Urine] Stat Lab 03/27/24 13:59 Ordered MDM Narrative Medical Decision Narrative: 23-year-old male presenting with 4 days of tachycardia and anxiety. Never had this in the past. States that nothing in particular was going on, he was at work and started feeling this way. Has not gone away in 4 days, came in at the behest of his girlfriend. Mild chest pain and shortness of breath in the setting of palpitations. No syncope, or any other associated abnormalities. History was obtained via conversation with patient. On arrival, patient hemodynamically stable, alert, oriented x4, appropriate, GCS 15, moving all extremities spontaneously, pupils equal and reactive to light. Full physical exam performed and significant for anxious, tachycardic male no acute distress, but is intermittently tearful. Heart is clear, lungs are clear, extremely tachycardic. No lower extremity edema. Neurologically intact and answering questions in full senses. Differential includes arrhythmia, tox, withdrawal, metabolic abnormality, endocrinologic abnormality, PE, pneumothorax, among others. 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 Patient was given 6 of adenosine for symptomatic management and correction of underlying abnormalities. No response, given 12 of adenosine. No response. Patient was given 20 mg of IV of diltiazem with rate improvement into the 130s. About 15 minutes later, given 25 mg of IV diltiazem with significant rate response down into the 90s. Patient placed on continuous cardiac monitoring and continuous pulse ox with initial blood pressure 182/90, heart rate 175, saturation 94% on room air. Independent interpretation of EKG shows SVT with rate 161, QRS 101, QTc 366 with normal axis. No evidence of obvious acute ischemia. Repeat EKG sinus tachycardia 117 bpm with DE interval 196, QRS 104, QTc 377. Normal axis. Appears to be diffuse DE downsloping versus repolarization abnormality. Workup independently interpreted and significant for nonactionable CBC or chemistry. Troponin negative, thyroid studies normal. On independent interpretation of imaging, no acute findings on chest x-ray. See radiology read for full review of final results. Heart score 1. On reevaluation, patient's heart rate in the 70s, no acute complaints, feels much better. Bedside [id number] ultrasound was performed and overall completely negative, see procedure note for details. Given patient presentation, workup, history, this most likely represents paroxysmal SVT with sustained SVT necessitating pharmacologic intervention. Because after period of observation here in the emergency department approximately 2-1/2 hours, no return of symptoms, patient deemed appropriate for outpatient follow-up with cardiology. Because patient at baseline without signs or symptoms of clinical decompensation, deemed appropriate for discharge. Results were relayed to patient who voiced understanding and were agreeable to outpatient management and follow up. I discussed my clinical impression with patient and answered all questions. At this time, the evidence for any other entities in the differential is insufficient to warrant any further testing or ED observation. This was explained as well. Advisory was given that persistent or worsening symptoms require further evaluation. I confirmed the understanding of this discussion. Foiling Machine Adjuster disclaimer Much of this encounter note is an electronic patternator spoken language to printed text. Electronic patternator of the spoken language may permit errors. Although I have reviewed the note, some errors may still exist.
[2024-03-27 14:04] LABS: Basophils % 0.3 % (0.1-2.0); Eosinophils # 0.4 K/mm3 (0.0-0.4); Eosinophils % 3.1 % (0.1-12.0); Hematocrit 49.2 % (42.0-52.0); Lymphocytes # 3.3 K/mm3 (0.7-4.5); Lymphocytes % 28.7 % (10-50); Mean Corpuscular HGB Conc 34.6 g/dL (31.8-35.4); Mean Corpuscular Hemoglobin 28.9 pg (27.0-31.2); Mean Corpuscular Volume 83.5 fl (80-94); Mean Platelet Volume 9.2 fl (7.4-10.4); Neutrophils # 6.8 K/mm3 (1.8-7.8); Neutrophils % 58.6 % (37.0-80.0); Platelet Count 309 K/mm3 (142-424); Red Blood Count 5.89 M/mm3 (4.60-6.20); Red Cell Distribution Width 12.6 % (11.5-17.5); White Blood Count 11.6 K/mm3 (4.8-10.8)
[2024-03-27 14:12] LABS: Alanine Aminotransferase 20 U/L (12-78); Albumin Level 5.2 g/dl (3.5-5.0); Albumin/Globulin Ratio 1.9 (1.1-1.8); Alkaline Phosphatase 89 U/L (38-126); Anion Gap 17.3 mEq/L (5-15); Aspartate Amino Transferase 30 U/L (17-59); Bilirubin,Total 0.5 mg/dl (0.2-1.3); Blood Urea Nitrogen 10 mg/dl (9-20); Calcium 9.9 mg/dl (8.4-10.2); Carbon Dioxide 25 mmol/L (22.0-30.0); Chloride 103 mmol/L (98-107); Creatinine Clearance Estimated 207 mL/min (50-200); Estimated Glomerular Filt Rate 141 ml/min (>60); GFR (African American) 171 ML/MIN (>60); Globulin 2.8 g/dL (1.3-3.2); Glucose 63 mg/dl (74-100); Potassium 3.3 mmoL/L (3.5-5.1); Sodium 142 mmol/L (136-145)
[2024-03-27 14:16] LABS: D-Dimer 0.36 ug/mL (0.0-0.5); HIV Combo NEGATIVE (Negative)
[2024-03-27 14:24] LABS: Hepatitis C Ab Qual. W/ RFX NEGATIVE (Negative)
[2024-03-27 14:30] LABS: T4 (Thyroxine) 7.3 ug/dl (5.53-11.0); Troponin I < 0.01 ng/ml (0.00-0.034)
[2024-03-27 14:43] LABS: Thyroid Stimulating Hormone 1.54 uIU/mL (0.465-4.68)
== END 2024-03-27 15:31 | disposition home or self-care (01) ==
PROVIDERS: Emergency Provider Emergency Medicine
DX: I47.10 Supraventricular tachycardia, unspecified (principal); R07.9 Chest pain, unspecified; R00.2 Palpitations; F41.9 Anxiety disorder, unspecified; F17.210 Nicotine dependence, cigarettes, uncomplicated
CPT/HCPCS: 71045; 80053; 84436; 84443; 84484; 85025; 85378; 86803; 87389; 93005; 96374; 96375; 99291; J0153

== ENCOUNTER 2024-10-27 18:32 | Outpatient (CLI) | payer OTHER, SELFPAY ==
--- NOTE | 2024-10-27 18:41 | XR_ITS ---
PROCEDURE INFORMATION: Exam: XR Left Foot Exam date and time: 10/27/2024 6:44 PM Age: 23 years old Clinical indication: Pain; Foot; Left; Additional info: Dropped metal on foot TECHNIQUE: Imaging protocol: Radiologic exam of the left foot. Views: 3 or more views. COMPARISON: No relevant prior studies available. FINDINGS: Bones/joints: No fracture or malalignment. Soft tissues: Question mild dorsal soft tissue swelling in the midfoot. No foreign body. IMPRESSION: 1. No osseous injuries. 2. Question mild dorsal soft tissue swelling in the midfoot.
== END 2024-10-27 23:59 | disposition home or self-care (01) ==
LOC: RAD 18:35
PROVIDERS: PCP Internal Medicine Adolescent Medicine; Visit Provider Nurse Practitioner
DX: M79.673 Pain in unspecified foot (principal); R93.6 Abnormal findings on diagnostic imaging of limbs; W22.8XXA Striking against or struck by other objects, initial encounter
CPT/HCPCS: 73630